=== PATIENT | female | born 1980 | race Caucasian/White ===

== ENCOUNTER 2017-09-28 05:02 | Inpatient (IN) ==
[2017-09-28 06:42] LABS: Basophils % 0.1 % (0.1-2.0); Eosinophils # 0.1 K/mm3 (0.0-0.4); Hematocrit 40.2 % (37.0-47.0); Hemoglobin 13.7 g/dL (12.2-16.2); Lymphocytes # 1.6 K/mm3 (0.7-4.5); Lymphocytes % 27.4 K/mm3 (10-50); Mean Corpuscular HGB Conc 34.1 g/dL (31.8-35.4); Mean Corpuscular Hemoglobin 27.8 pg (27.0-31.2); Mean Corpuscular Volume 81.4 fl (81-99); Mean Platelet Volume 7.7 fl (7.4-10.4); Monocytes # 0.4 K/mm3 (0.1-1.0); Monocytes % 5.9 % (1.7-9.3); Neutrophils # 3.9 K/mm3 (1.8-7.8); Neutrophils % 65.6 % (37.0-80.0); Platelet Count 178 K/mm3 (142-424); Red Blood Count 4.93 M/mm3 (4.20-5.40); Red Cell Distribution Width 13.9 % (11.5-17.5); White Blood Count 5.9 K/mm3 (4.8-10.8)
--- NOTE | 2017-09-28 08:25 | Progress Note ---
Labor Note - Subjective: Date: 09/28/17 Time: 08:24 regular contraction - Objective: Contractions:: every 2-3 minutes Cervical Dilation:: 3-4 Effacement:: 75% Station: -1 Membranes: articially ruptured - Fetus: Monitoring?: Yes monitoring type:: External - Assessment: Labor progressing?: Yes Cephalopelvic disproportion?: No Patient Problems: All Active Problems (Acute) - Plan: Anesthesia for epidural?: Yes Continue to labor down?: Yes Plan for ?: No Continue to monitor?: Yes Start pushing?: No
--- NOTE | 2017-09-28 08:29 | History & Physical Report ---
OB - H&P: HPI Antepartum - History of Present Illness Chief complaint: She is a 37-year-old 13 para 10 aborta 2 who was 39 weeks gestation History of present illness: She has had a previous history of a traumatic delivery with excruciating pain and possibly anxiety at the time of her delivery. She was fully dilated and pushing and in her last delivery had excruciating pain and anxiety and actually passed out. She did not want this to happen in this delivery. As result of that we are going to deliver her at term. - History of Present Criteria for establishing EDC:: LMP confirmed by 2nd trimester US care: limited care Ultrasounds: normal mid trimester US Obstetrical complications: none [facility] History I have reviewed the patient's past medical history: Yes Other Surgeries: No: Amputation: No Fractures: No - *Social History Smoking Status: Never smoker Alcohol Intake: never Substance Use Type: denies use *Family Hx:: No significant family history Para: 10 Review of Systems - Review of Systems Review of systems:: pertinent systems reviewed and negative unless documented below Meds Home Medications Medication Instructions Recorded Confirmed Type No Known Home Medications 08/03/17 08/03/17 History Allergies Allergy/AdvReac Type Severity Reaction Status Date / Time Sulfa (Sulfonamide Allergy Unknown hives Verified 09/21/17 16:32 Antibiotics) [SULFA (SULFONAMIDE ANTIBIOTICS)] OB - H&P: Exam - Constitutional no acute distress - Routine HEENT Exam Head: Present: normocephalic - Routine Abdominal Exam Present: soft - Routine Neurological Exam Present: alert, oriented X3 - Routine Psychiatric Exam Present: normal affect OB - Results - Labs Labs: Short CBC 09/28/17 Range/Units 06:10 WBC 5.9 (4.8-10.8) K/mm3 Hgb 13.7 (12.2-16.2) g/dL Hct 40.2 (37.0-47.0) % Plt Count 178 (142-424) K/mm3 OB - A/P Antepartum (1) Grand multiparity in labor and delivery Current visit: Yes Status: Acute - Additional Plan Plan: induction Additional Information:: We have started her on oxytocin and and I ruptured her membranes this morning. She is 3-4 cm dilated. The fluid is clear. We will get an epidural and wait for delivery.
--- NOTE | 2017-09-28 11:11 | Progress Note ---
Labor Note - Subjective: Date: 09/28/17 Time: 11:10 regular contraction - Objective: NST:: Reactive Contractions:: every 2-3 minutes Cervical Dilation:: 4 Effacement:: 80% Station: -1 Membranes: articially ruptured - Fetus: monitoring type:: External - Assessment: Labor progressing?: Yes Cephalopelvic disproportion?: No Patient Problems: All Active Problems Grand multiparity with problem (Acute) Grand multiparity in labor and delivery (Acute) (Acute) - Plan: Anesthesia for epidural?: Yes Continue to labor down?: Yes Plan for ?: No Continue to monitor?: Yes Start pushing?: No
--- NOTE | 2017-09-28 11:33 | Progress Note ---
[facility] Anesthesia Checklist - Structural Data Admitted From: Home Planned Operative Procedure/s: labor epidural Consent for Planned Operative Procedure(s) Verified: Yes - Airway Assessment C-Spine Mobility Assessed: Yes TMJ Mobility Assessed: Yes Dentition: Good Dentition - Neurological Assessment Level of Consciousness: Awake, Alert, Appropriate - Anesthesia Plan Anesthesia Risk discussed: Yes Anesthesia Plan: Verified ASA Class: II Anesthesia Type: Epidural [facility] Anesthesia HX I have reviewed the patient's past medical history: Yes Other Surgeries: No: Amputation: No Fractures: No *Family Hx:: No significant family history
--- NOTE | 2017-09-28 13:47 | Procedure Note ---
- Delivery Note Delivery Date:: 09/28/17 Delivery Time:: 13:24 Anesthesia Type: Epidural Was labor medically induced?: Yes Induction method: per pitocin protocol Infant delivered prior to 39 weeks?: No Infant Gender: Female at 1 minute: 9 at 5 minutes: 9 AF:: Clear fluid Delivery Procedure:: She is a 37-year-old 13 now para 11 aborta 2 who is 39 weeks gestational age. She has had a previous traumatic vaginal delivery with severe abdominal cramps in her last 2 pregnancies. As result of that she requested delivery and hospital with epidural. She was started on IV oxytocin and had her membranes ruptured. Under labor epidural she progressed to full dilation. With one long gentle push she was able to deliver a liveborn female child over an intact perineum. The baby weighed 5 lbs. 13 oz. and had Apgars of 9 at 1 minute and 9 at 5 minutes. On deliver the head the rest of the infant's body delivered atraumatically. The baby cried spontaneously and the oropharynx and nasopharynx were bulb suctioned. We allowed the cord to continue to pulsate for approximately 1 minute. We then doubly clamped the cord and placed the baby on the mother's abdomen for further care. The nurses assigned Apgars of 9 at 1 minute and 9 at 5 minutes. We then obtained cord blood. Her mother is Rh- . She received IV oxytocin and using gentle traction on the cord and countertraction on the fundus I was able to easily deliver the placenta intact. He had a normal three-vessel cord. The pain was intact. There were no other vaginal tears. She has AB negative blood, she is group B streptococcus status unknown. Using the [employer] kaylyn for group B strep prophylaxis I determined that she was a low risk for group B strep and as result of that she did not get IV antibiotics. She does not have a fever. She does not have a previous baby with group B strep or group B strep in her urine. Her membranes were not ruptured more than 18 hours. Her estimated blood loss was approximately 400 cc. Placental Delivery Description: Spontaneous
--- NOTE | 2017-09-28 17:15 | Discharge Summary ---
General - General Admission date:: 09/28/17 Discharge date: 09/28/17 HPI HPI: She is a 37-year-old 13 now para 11 aborta 2 who was brought in for induction of labor this morning because of a previous traumatic delivery. Hospital Course Hospital Course: She was started on IV oxytocin and had her membranes ruptured. She progressed to full dilation and delivered spontaneously a liveborn female child at 1320 4 in the afternoon of September 28, 2017. The baby weighed 5 lbs. 13 oz. and had Apgars of 9 at 1 minute and 9 at 5 minutes. She has AB- blood and her baby is Rh+ so she has received RhoGam. She will be discharged home to follow-up with me in a couple of weeks. Objective no acute distress Results Labs on day of discharge: Labs from last 24 hours 09/28/17 09/28/17 09/28/17 15:36 15:36 06:10 WBC RBC Hgb Hct MCV MCH MCHC RDW Plt Count MPV Neut % (Auto) Lymph % (Auto) [place] % (Auto) Eos % (Auto) Baso % (Auto) Neut # (Auto) Lymph # (Auto) [place] # (Auto) Eos # (Auto) Baso # (Auto) Blood Type AB Negative Antibody Screen Positive Antibody Identification Pending Anti-E Screen Negative Baby's Rh Status Positive 09/28/17 09/28/17 06:10 06:10 WBC 5.9 RBC 4.93 Hgb 13.7 Hct 40.2 MCV 81.4 MCH 27.8 MCHC 34.1 RDW 13.9 Plt Count 178 MPV 7.7 Neut % (Auto) 65.6 Lymph % (Auto) 27.4 [place] % (Auto) 5.9 Eos % (Auto) 1.0 Baso % (Auto) 0.1 Neut # (Auto) 3.9 Lymph # (Auto) 1.6 [place] # (Auto) 0.4 Eos # (Auto) 0.1 Baso # (Auto) 0.0 Blood Type AB Negative Antibody Screen Positive Antibody Identification Screen Baby's Rh Status DS: Diagnosis - Discharge Diagnosis (1) Grand multiparity in labor and delivery Status: Acute Discharge Plan - Patient Discharge Instructions ACTIVITY: No heavy lifting DIET: continue same diet Additional Instructions: NO HEAVY LIFTING, NO STRENUOUS ACTIVITY, NOTHING IN THE VAGINA FOR 6 WEEKS. Patient Instructions: Depression, Hemorrhage, Post Discharge Instructions - Follow up Plan Disposition: Home, Self-Half-Way Medications: Home Medications Medication Instructions Recorded Confirmed Type No Known Home Medications 09/28/17 09/28/17 History Prescriptions/Medication Reconciliation: No Action No Known Home Medications
[2017-09-28 20:04] VITALS: BP 118/73
== END 2017-09-28 19:50 | disposition home or self-care (01) ==
LOC: OB 05:02
PROVIDERS: ADMIT Nurse Practitioner Obstetrics & Gynecology; ATTEND Nurse Practitioner Obstetrics & Gynecology

== ENCOUNTER → 2019-10-03 16:51 | Outpatient (CLI) | payer SELFPAY | PROVIDERS: Visit Provider Nurse Practitioner Obstetrics & Gynecology | DX: Z34.90 Encounter for supervision of normal pregnancy, unspecified, unspecified trimester (principal) | CPT/HCPCS: 86403 ==

== ENCOUNTER 2019-10-18 05:02 | Inpatient (IN) | payer SELFPAY ==
[2019-10-18 05:07] VITALS: BMI 29.0
[2019-10-18 05:57] VITALS: BP 130/82; PULSE 86; RESP 18; TEMP 36.8; O2SAT 98; BMI 29.0
[2019-10-18 06:06] LABS: Microscopic, Urine URINE MICROSCOPIC (MICROSCOPIC)
[2019-10-18 06:15] LABS: Appearance,Urine CLEAR (Clear); Bilirubin,Urine Negative (Negative); Blood, Urine 1+ (Negative); Color,Urine YELLOW (Yellow); Glucose,Urine (UA) Negative (Negative); Ketones,Urine Negative (Negative); Leukocyte Esterase,Urine Negative (Negative); Nitrate,Urine Negative (Negative); Protein,Urine Negative (Negative); Urobilinogen,Urine 0.2 EU/dl (0.2)
[2019-10-18 06:26] LABS: Barbiturates Screen,Urine Negative ng/ml (<200)
[2019-10-18 06:27] LABS: Amphetamine/Metha Screen,Urine Negative ng/ml (<1000); Benzodiazepines Screen,Urine Negative ng/ml (<200)
[2019-10-18 06:28] LABS: Basophils % 0.3 % (0.1-2.0); Cannabinoid Screen,Urine Negative ng/ml (<50); Cocaine Screen,Urine Negative ng/ml (<300); Eosinophils # 0.1 K/mm3 (0.0-0.4); Eosinophils % 1.6 % (0.1-12.0); Hematocrit 40.1 % (37.0-47.0); Hemoglobin 13.6 g/dL (12.2-16.2); Lymphocytes # 1.8 K/mm3 (0.7-4.5); Lymphocytes % 27.1 % (10-50); Mean Corpuscular Hemoglobin 28.2 pg (27.0-31.2); Mean Corpuscular Volume 82.9 fl (81-99); Mean Platelet Volume 7.9 fl (7.4-10.4); Monocytes # 0.3 K/mm3 (0.1-1.0); Monocytes % 4.8 % (1.7-9.3); Neutrophils # 4.4 K/mm3 (1.8-7.8); Neutrophils % 66.3 % (37.0-80.0); Platelet Count 183 K/mm3 (142-424); Red Blood Count 4.84 M/mm3 (4.20-5.40); Red Cell Distribution Width 14.2 % (11.5-17.5); White Blood Count 6.6 K/mm3 (4.8-10.8)
[2019-10-18 06:29] LABS: Methadone Screen,Urine Negative ng/ml (<300)
[2019-10-18 06:30] LABS: Opiate Screen,Urine Negative ng/ml (<300); Phencyclidine Screen,Urine Negative ng/ml (<25)
[2019-10-18 06:31] LABS: Squamous Epithelial Cell,Urine Occasional #/hpf (0-5)
[2019-10-18 06:48] LABS: Coronavirus 19 IgG Antibody Negative (Negative); Coronavirus 19 IgM Antibody Negative (Negative)
[2019-10-18 07:30] VITALS: BP 125/83; PULSE 81; RESP 20; TEMP 36.9; O2SAT 98
--- NOTE | 2019-10-18 08:36 | HMH.LABNOT ---
Labor Note - Subjective: Date: 10/18/19 Time: 08:36 regular contraction - Objective: NST:: Reactive Contractions:: every 2-3 minutes Effacement:: 50% Station: -2 Membranes: artificially ruptured - Fetus: Monitoring?: Yes monitoring type:: External - Assessment: Labor progressing?: Yes Cephalopelvic disproportion?: No Patient Problems: All Active Problems (Acute) - Plan: Anesthesia for epidural?: Yes Continue to labor down?: Yes Plan for ?: No Continue to monitor?: Yes Start pushing?: No
--- NOTE | 2019-10-18 11:17 | HMH.OBAPHP ---
OB - H&P: HPI Antepartum - History of Present Illness Chief complaint: She is a 39-year-old 12 para 11 at 39 weeks gestational age. History of present illness: She is a 39-year-old 12 para 11 who has had problems in labor and difficulty with labor. She wanted to be admitted to hospital for epidural. 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 - History of Present Criteria for establishing EDC:: LMP confirmed by 2nd trimester US care: limited care Ultrasounds: normal mid trimester US Obstetrical complications: none Medical complications: none - Labs GBS status: negative [facility] History I have reviewed the patient's past medical history: Yes *Have you ever received a pneumonia vaccine?: No *Have you received a flu vaccine this season?: No Other Surgeries: No: Amputation: No Fractures: No - *Social History Smoking Status: Never smoker Alcohol Intake: never Substance Use Type: denies use *Occupational Status:: unemployed *Travel in the last 8 weeks: None Family Hx:: No significant family history Para: 11 Review of Systems - Review of Systems Review of systems:: pertinent systems reviewed and negative unless documented below Meds Home Medications Medication Instructions Recorded Confirmed Type Mv-Mn/Iron/FA/Herbal/Digestive 1 each PO DAILY 10/18/19 10/18/19 History [ One Tablet] Allergies Allergy/AdvReac Type Severity Reaction Status Date / Time Sulfa (Sulfonamide Allergy Unknown hives Verified 10/03/19 16:13 Antibiotics) [SULFA (SULFONAMIDE ANTIBIOTICS)] OB - H&P: Exam - Physical Exam Vital signs: Temp Pulse Resp BP Pulse Ox 98.4 F 81 20 125/83 98 10/18/19 07:30 10/18/19 07:30 10/18/19 07:30 10/18/19 07:30 10/18/19 07:30 - Constitutional no acute distress - Routine HEENT Exam Head: Present: normocephalic Eye: Present: EOMI, PERRL ENT: Present: mucous membranes moist - Routine Neck Exam Present: supple, full ROM - Routine Respiratory Exam Absent: accessory muscle use (good air entry bilaterally), respiratory distress, wheezes, crackles - Routine Cardiovascular Exam Present: RRR. Absent: murmur - Routine Abdominal Exam Present: soft, normoactive bowel sounds. Absent: tenderness, distended, guarding - Routine Rectal Exam Patient deferred: visual exam, digital exam - Routine Exam Patient deferred: external exam, groin exam, perineal exam - Routine Extremities Exam Present: full ROM. Absent: cyanosis, edema - Routine Skin Exam Present: intact. Absent: cyanosis - Routine Neurological Exam Present: alert, oriented X3 - Routine Psychiatric Exam Present: normal affect OB - Results - Labs Labs: Short CBC 10/18/19 Range/Units 05:30 WBC 6.6 (4.8-10.8) K/mm3 Hgb 13.6 (12.2-16.2) g/dL Hct 40.1 (37.0-47.0) % Plt Count 183 (142-424) K/mm3 Urine 10/18/19 Range/Units 05:30 Urine Color Yellow (Yellow) Urine Appearance Clear (Clear) Urine pH 6.0 (5.0-8.5) Ur Specific [place] 1.020 (1.005-1.030) Urine Protein Negative (Negative) Urine Glucose (UA) Negative (Negative) OB - A/P Antepartum (1) Normal delivery Current visit: Yes Status: Acute (2) Grand multiparity Current visit: Yes Status: Acute (3) Advanced maternal age in multigravida Current visit: Yes Status: Acute - Additional Plan Planning to breastfeed?: Yes Plan: induction Additional Information:: She has grand multiparity and has been admitted for induction of labor at term.
[2019-10-18 12:10] VITALS: BP 102/60; PULSE 88; RESP 20; TEMP 36.9
--- NOTE | 2019-10-18 13:11 | HMH.DN ---
- Delivery Note Delivery Date:: 10/18/19 Delivery Time:: 12:54 Anesthesia Type: Epidural Was labor medically induced?: Yes Induction method: per pitocin protocol Gestational age (weeks): 39 delivered prior to 39 weeks?: No Gender: Female at 1 minute: 7 at 5 minutes: 9 Delivery Procedure:: She is a 39-year-old 12 para 11 who was 39 weeks gestational age. She wanted an epidural so she was brought in for induction of labor at term. She was started on IV oxytocin had her membranes ruptured. Under labor epidural she progressed to full dilation and delivered spontaneously a liveborn female child at 12:54 PM in the afternoon of October 18, 2019. On deliver the head it was noted that there was a nuchal cord and this was easily reduced. This was followed by the rest the 's body atraumatically. We allowed the cord to continue to pulsate for approximately 1 minute. The cord is then doubly clamped and cut and the infant was placed on the mother's abdomen and the nurses assigned Apgars of 7 at 1 minute and 9 at 5 minutes. We then obtained cord blood. The patient has Rh- blood. She received IV oxytocin and using gentle traction on the cord and countertraction the fundus I was able to easily deliver the placenta intact. He had a normal three-vessel cord. There were no perineal or vaginal lacerations. 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 She has O Rh- blood and will receive RhoGam as necessary. She was group B streptococcus negative. Placental Delivery Description: Spontaneous
[2019-10-18 15:26] VITALS: BP 119/71; PULSE 80; RESP 18; TEMP 36.9
--- NOTE | 2019-10-18 15:41 | HMH.DCSUM ---
General - General Admission date:: 10/18/19 Discharge date: 10/18/19 HPI HPI: She is a 39-year-old 14 now para 12 who is 39 weeks gestational age. She wanted an epidural and as result of that we brought her in at term for delivery. Hospital Course Hospital Course: She was started on IV oxytocin had her membranes ruptured. She progressed to full dilation under labor epidural and delivered spontaneously a liveborn female child at 12:54 PM in the afternoon of October 18, 2019. The baby was a liveborn female child weighing 6 pounds 12 ounces and she had Apgars of 7 at 1 minute and 9 at 5 minutes. She has done well and has remained afebrile throughout her hospitalization. She is eating and drinking and ambulating. She has O Rh- blood and will receive RhoGam if necessary. She was group B streptococcus negative. She is discharged home to follow-up with me in approximately 2 weeks time. She will continue with her vitamins and iron. She was given a prescription for Ms. apostle 200 mg to take every 6 hours for the next 24 hours since she is at risk for hemorrhage given her grand multiparity. Her condition on discharge is stable and improved. Objective Vital signs: Temp Pulse Resp BP Pulse Ox 98.4 F 88 20 102/60 L 98 10/18/19 12:10 10/18/19 12:10 10/18/19 12:10 10/18/19 12:10 10/18/19 07:30 no acute distress - *Routine HEENT Exam Head: Present: normocephalic Eye: Present: EOMI, PERRL ENT: Present: mucous membranes moist Results Labs on day of discharge: Labs from last 24 hours 10/18/19 10/18/19 10/18/19 14:15 05:30 05:30 WBC RBC Hgb Hct MCV MCH MCHC RDW Plt Count MPV Neut % (Auto) Lymph % (Auto) [place] % (Auto) Eos % (Auto) Baso % (Auto) Neut # (Auto) Lymph # (Auto) [place] # (Auto) Eos # (Auto) Baso # (Auto) Urine Color Urine Appearance Urine pH Ur Specific [place] Urine Protein Urine Glucose (UA) Urine Ketones Urine Blood Urine Nitrate Urine Bilirubin Urine Urobilinogen Ur Leukocyte Esterase Urine RBC Urine WBC Ur Squamous Epith Cells Urine Bacteria Urine Opiates Screen Negative Urine Methadone Screen Negative Ur Barbituates Screen Negative Ur Phencyclidine Scrn Negative Ur Amphetamines Screen Negative U Benzodiazepines Scrn Negative Urine Cocaine Screen Negative U Marijuana (THC) Screen Negative SARS-CoV-2 IgG Ab (Rapid) SARS-CoV-2 IgM Ab (Rapid) Blood Type Pending Antibody Screen Pending Antibody Identification Pending Screen Pending Baby's Rh Status Pending 10/18/19 10/18/19 10/18/19 05:30 05:30 05:30 WBC RBC Hgb Hct MCV MCH MCHC RDW Plt Count MPV Neut % (Auto) Lymph % (Auto) [place] % (Auto) Eos % (Auto) Baso % (Auto) Neut # (Auto) Lymph # (Auto) [place] # (Auto) Eos # (Auto) Baso # (Auto) Urine Color Yellow Urine Appearance Clear Urine pH 6.0 Ur Specific [place] 1.020 Urine Protein Negative Urine Glucose (UA) Negative Urine Ketones Negative Urine Blood 1+ Urine Nitrate Negative Urine Bilirubin Negative Urine Urobilinogen 0.2 Ur Leukocyte Esterase Negative Urine RBC 5-10 Urine WBC 3-5 Ur Squamous Epith Cells Occasional Urine Bacteria None Urine Opiates Screen Urine Methadone Screen Ur Barbituates Screen Ur Phencyclidine Scrn Ur Amphetamines Screen U Benzodiazepines Scrn Urine Cocaine Screen U Marijuana (THC) Screen SARS-CoV-2 IgG Ab (Rapid) Negative SARS-CoV-2 IgM Ab (Rapid) Negative Blood Type AB Negative Antibody Screen Positive Antibody Identification Screen Baby's Rh Status 10/18/19 05:30 WBC 6.6 RBC 4.84 Hgb 13.6 Hct 40.1 MCV 82.9 MCH 28.2 MCHC 34.0 RDW 14.2
== END 2019-10-18 18:40 | disposition home or self-care (01) | DRG 807 ==
PROVIDERS: Admitting Provider Nurse Practitioner Obstetrics & Gynecology; PCP Nurse Practitioner Family; Visit Provider Nurse Practitioner Obstetrics & Gynecology
DX: O69.81X0 Labor and delivery complicated by cord around neck, without compression, not applicable or unspecified (principal); Z37.0 Single live birth; Z3A.39 39 weeks gestation of pregnancy; Z29.13 Encounter for prophylactic Rho(D) immune globulin
CPT/HCPCS: 59409; 36415; 59025; 80305; 81001; 85025; 85461; 86328; 86850; 86870; 94761; J2790

== ENCOUNTER → 2021-05-02 15:55 | Outpatient (CLI) | payer SELFPAY | LOC: LAB 15:55 → LAB.DROPOF 15:56 | PROVIDERS: Visit Provider Nurse Practitioner Obstetrics & Gynecology | DX: Z34.90 Encounter for supervision of normal pregnancy, unspecified, unspecified trimester (principal) | CPT/HCPCS: 86403 ==

== ENCOUNTER 2021-05-15 04:52 | Outpatient (CLI) | payer SELFPAY ==
[2021-05-15 05:06] VITALS: BMI 28.3
--- NOTE | 2021-05-15 06:08 | US_ITS ---
PROCEDURE: US OB LIMITED POSITION CLINICAL INDICATION: INDUCTION OF LABOR, UNSURE OF LIE COMPARISON: No exams were available for comparison FINDINGS: Single live fetus is present in an oblique lie with the head in the left lower quadrant. heart tones are present 144 beats per minute. Average ultrasound age is 35 weeks 1 day. Estimated weight is 2422 g which is 2 percentile indicating intrauterine growth restriction.. IMPRESSION: Single live fetus is present in an oblique lie with the head in the left lower quadrant. heart tones are present 144 beats per minute. Average ultrasound age is 35 weeks 1 day. Estimated weight is 2422 g which is 2 percentile indicating intrauterine growth restriction Dictated by: Castro Guzman MD 05/15/2021 08:01 Castro Guzman MD in [place] 05/15/2021 08:01
[2021-05-15 06:14] VITALS: BP 117/70; PULSE 76; RESP 18; TEMP 36.7; O2SAT 97; BMI 28.3
[2021-05-15 07:37] LABS: Basophils % 0.4 % (0.1-2.0); Eosinophils # 0.1 K/mm3 (0.0-0.4); Eosinophils % 0.8 % (0.1-12.0); Hematocrit 39.1 % (37.0-47.0); Hemoglobin 13.5 g/dL (12.2-16.2); Lymphocytes # 1.7 K/mm3 (0.7-4.5); Lymphocytes % 28.2 % (10-50); Mean Corpuscular HGB Conc 34.6 g/dL (31.8-35.4); Mean Corpuscular Hemoglobin 27.7 pg (27.0-31.2); Mean Corpuscular Volume 80.1 fl (81-99); Mean Platelet Volume 7.6 fl (7.4-10.4); Monocytes # 0.4 K/mm3 (0.1-1.0); Monocytes % 5.7 % (1.7-9.3); Neutrophils # 3.9 K/mm3 (1.8-7.8); Platelet Count 239 K/mm3 (142-424); Red Blood Count 4.88 M/mm3 (4.20-5.40); Red Cell Distribution Width 13.3 % (11.5-17.5); White Blood Count 6.1 K/mm3 (4.8-10.8)
--- NOTE | 2021-05-15 10:15 | HMH.HPDC ---
General - General Admission date:: 05/15/21 Discharge date: 05/15/21 *Admission Date: 05/15/21 *Chief complaint: multigravida *History of present illness: She is a 40-year-old 15 para 12 aborta 2 who had an unsure last menstrual period. She was seen at 31 weeks in my office and we felt that she may have been 33 weeks along. Her due date was 06 June. We went by this earlier date but we think that the due date may actually be 06 June. 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[employer]OR history: Spontaneous Para: 12 Review of Systems - Review of Systems Review of systems:: pertinent systems reviewed and negative unless documented below Exam Vital signs and Labs for Last 24 Hours: Temp Pulse Resp BP Pulse Ox 98.0 F 76 18 117/70 97 05/15/21 06:14 05/15/21 06:14 05/15/21 06:14 05/15/21 06:14 05/15/21 06:14 Laboratory Results - last 24 hr 05/15/21 07:08: WBC 6.1, RBC 4.88, Hgb 13.5, Hct 39.1, MCV 80.1 L, MCH 27.7, MCHC 34.6, RDW 13.3, Plt Count 239, MPV 7.6, Neut % (Auto) 65.0, Lymph % (Auto) 28.2, [place] % (Auto) 5.7, Eos % (Auto) 0.8, Baso % (Auto) 0.4, Neut # (Auto) 3.9, Lymph # (Auto) 1.7, [place] # (Auto) 0.4, Eos # (Auto) 0.1, Baso # (Auto) 0.0 05/15/21 07:08: Blood Type AB Negative, Antibody Screen Positive I & O for Last 24 hours: Intake & Output 12/19/05/13/21 05/14/21 05/15/21 11:59 11:59 11:59 11:59 Weight 181 lb - Constitutional no acute distress - *Routine HEENT Exam Head: Present: normocephalic Eye: Present: EOMI, PERRL ENT: Present: mucous membranes moist - *Routine Neck Exam Present: supple, full ROM - *Routine Respiratory Exam Absent: accessory muscle use (good air entry bilaterally), wheezes, crackles - *Routine Cardiovascular Exam Present: RRR. Absent: murmur - *Routine Abdominal Exam Present: soft, normoactive bowel sounds. Absent: tenderness, rebound, guarding, mass - *Routine Rectal Exam Rectal:: deferred - *Routine Genitalia Exam Genitalia:: deferred - *Routine Extremities Exam Present: full ROM. Absent: cyanosis, edema, calf tenderness - *Routine Skin Exam Present: intact (good color) - *Routine Neurological Exam Present: alert, oriented X3 - Routine Psychiatric Exam Present: normal affect - Detailed Rectal Exam Patient deferred: visual exam, digital exam - Detailed Exam Patient deferred: external exam, groin exam, perineal exam Hospital Course Hospital Course: We did an ultrasound and the lie is unstable. We found that the baby's head was high and slightly oblique. We also felt that her dates were possibly off given the ultrasound showed that she measured up smaller than her dates. As result of that we have decided to not induce her labor at term and wait for another couple of weeks. She is Anab[employer]ism and we are concerned that if the baby gets transferred to will be extremely expensive to look after the baby. We will plan to see her again next week. We will discharge her home from labor and delivery today. We will plan to deliver her closer to 06 June 2021 Results Labs on day of discharge: Labs from last 24 hours 05/15/21 05/15/21 05/15/21 07:08 07:08 07:08 WBC 6.1 RBC 4.88 Hgb 13.5 Hct 39.1 MCV 80.1 L MCH 27.7 MCHC 34.6 RDW 13.3 Plt Count 239 MPV 7.6 Neut % (Auto) 65.0 Lymph % (Auto) 28.2 [place] % (Auto) 5.7 Eos % (Auto) 0.8 Baso % (Auto) 0.4 Neut # (Auto) 3.9 Lymph # (Auto) 1.7 [place] # (Auto) 0.4 Eos # (Auto) 0.1 Ba
[2021-05-16 08:52] LABS: HIV Screen 4th Generation wRfx Non Reactive (Non Reactive); Hepatitis B Surface Antigen Negative (Negative); Rubella Antibodies, IgG <0.90 index (Immune >0.99)
[2021-05-16 10:11] LABS: Rapid Plasma Reagin Ab Titer Non Reactive (NonRea<1:1)
== END 2021-05-15 09:00 | disposition home or self-care (01) ==
LOC: OB 10:20 → OBOUT 05-16 15:19 → OB 05-16 15:21
PROVIDERS: PCP Nurse Practitioner Family; Visit Provider Nurse Practitioner Obstetrics & Gynecology
DX: O26.893 Other specified pregnancy related conditions, third trimester (principal); Z3A.39 39 weeks gestation of pregnancy
CPT/HCPCS: 59025; 76815; 85025; 86592; 86762; 86850; 86870; 87340

== ENCOUNTER 2021-05-31 05:17 | Inpatient (IN) | payer SELFPAY ==
[2021-05-31 04:49] VITALS: BMI 28.0
[2021-05-31 05:51] LABS: Coronavirus 19, PCR Not Detected (NotDetected); Influenza A, PCR Not Detected (NotDetected); Influenza B, PCR Not Detected (NotDetected); Microscopic, Urine URINE MICROSCOPIC (MICROSCOPIC)
[2021-05-31 05:52] LABS: Basophils # 0.1 K/mm3 (0-0.2); Basophils % 1.6 % (0.1-2.0); Eosinophils # 0.1 K/mm3 (0.0-0.4); Eosinophils % 1.3 % (0.1-12.0); Hematocrit 40.9 % (37.0-47.0); Hemoglobin 13.6 g/dL (12.2-16.2); Lymphocytes % 32.7 % (10-50); Mean Corpuscular HGB Conc 33.2 g/dL (31.8-35.4); Mean Corpuscular Hemoglobin 27.7 pg (27.0-31.2); Mean Corpuscular Volume 83.5 fl (81-99); Mean Platelet Volume 9.1 fl (7.4-10.4); Monocytes # 0.4 K/mm3 (0.1-1.0); Monocytes % 5.8 % (1.7-9.3); Neutrophils # 3.6 K/mm3 (1.8-7.8); Neutrophils % 58.6 % (37.0-80.0); Platelet Count 195 K/mm3 (142-424); Red Blood Count 4.89 M/mm3 (4.20-5.40); Red Cell Distribution Width 14.1 % (11.5-17.5); White Blood Count 6.1 K/mm3 (4.8-10.8)
[2021-05-31 05:58] LABS: Appearance,Urine CLEAR (Clear); Bilirubin,Urine Negative (Negative); Blood, Urine TRACE-I (Negative); Color,Urine YELLOW (Yellow); Glucose,Urine (UA) TRACE (Negative); Ketones,Urine TRACE (Negative); Leukocyte Esterase,Urine Negative (Negative); Nitrate,Urine Negative (Negative); Protein,Urine Negative (Negative); Specific Gravity, Urine 1.015 (1.005-1.030); Urobilinogen,Urine 0.2 EU/dl (0.2)
[2021-05-31 06:08] VITALS: BP 117/83; PULSE 82; RESP 18; TEMP 36.7; O2SAT 97; BMI 28.0
[2021-05-31 06:18] LABS: WBC,Urine Occasional #/hpf (0-3)
[2021-05-31 07:06] LABS: Amphetamine/Metha Screen,Urine Negative ng/ml (<1000)
[2021-05-31 07:07] LABS: Barbiturates Screen,Urine Negative ng/ml (<200)
[2021-05-31 07:08] LABS: Benzodiazepines Screen,Urine Negative ng/ml (<200); Cannabinoid Screen,Urine Negative ng/ml (<50)
[2021-05-31 07:09] LABS: Cocaine Screen,Urine Negative ng/ml (<300); Methadone Screen,Urine Negative ng/ml (<300)
[2021-05-31 07:10] LABS: Opiate Screen,Urine Negative ng/ml (<300)
[2021-05-31 07:11] LABS: Phencyclidine Screen,Urine Negative ng/ml (<25)
--- NOTE | 2021-05-31 10:18 | HMH.OBAPHP ---
OB - H&P: HPI Antepartum - History of Present Illness Chief complaint: Term , grand multipara History of present illness: She is a 40-year-old 15 para 12 aborta 2 who is 39 weeks gestational age. She came in for induction of labor at term. She wants an epidural. She is Jose. She has had 12 previous vaginal deliveries. - History of Present Criteria for establishing EDC:: based on LMP only care: limited care Ultrasounds: other Obstetrical complications: none Medical complications: none - Labs Blood type: AB (-) negative GBS status: negative [facility] History I have reviewed the patient's past medical history: Yes *Have you ever received a pneumonia vaccine?: No *Have you received a flu vaccine this season?: No Other Surgeries: No: Amputation: No Fractures: No - *Social History Smoking Status: Never smoker Alcohol Intake: never Substance Use Type: denies use *Occupational Status:: unemployed *Travel in the last 8 weeks: None Family Hx:: No significant family history 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 Review of Systems - Review of Systems Review of systems:: pertinent systems reviewed and negative unless documented below Meds Home Medications Medication Instructions Recorded Confirmed Type No Known Home Medications 05/31/21 05/31/21 History Allergies Allergy/AdvReac Type Severity Reaction Status Date / Time Sulfa (Sulfonamide Allergy Unknown hives Verified 05/22/21 14:27 Antibiotics) [SULFA (SULFONAMIDE ANTIBIOTICS)] OB - H&P: Exam - Physical Exam Vital signs: Temp Pulse Resp BP Pulse Ox 98.1 F 82 18 117/83 97 05/31/21 06:08 05/31/21 06:08 05/31/21 06:08 05/31/21 06:08 05/31/21 06:08 - Constitutional no acute distress - Routine HEENT Exam Head: Present: normocephalic Eye: Present: EOMI, PERRL ENT: Present: mucous membranes moist - Routine Neck Exam Present: supple, full ROM - Routine Respiratory Exam Absent: accessory muscle use (good air entry bilaterally), respiratory distress, wheezes, crackles - Routine Cardiovascular Exam Present: RRR. Absent: murmur - Routine Abdominal Exam Present: soft, normoactive bowel sounds. Absent: tenderness, distended, guarding - Routine Rectal Exam Patient deferred: visual exam, digital exam - Routine Exam Patient deferred: external exam, groin exam, perineal exam - Routine Extremities Exam Present: full ROM. Absent: cyanosis, edema - Routine Skin Exam Present: intact. Absent: cyanosis - Routine Neurological Exam Present: alert, oriented X3 - Routine Psychiatric Exam Present: normal affect OB - Results - Labs Labs: Short CBC 05/31/21 Range/Units 05:39 WBC 6.1 (4.8-10.8) K/mm3 Hgb 13.6 (12.2-16.2) g/dL Hct 40.9 (37.0-47.0) % Plt Count 195 (142-424) K/mm3 Urine 05/31/21 Range/Units 05:39 Urine Color Yellow (Yellow) Urine Appearance Clear (Clear) Urine pH 6.0 (5.0-8.5) Ur Specific [place] 1.015 (1.005-1.030) Urine Protein Negative (Negative) Urine Glucose (UA) Trace (Negative) OB - A/P Antepartum (1) Advanced maternal age (AMA), 40 years or greater Status: Acute (2) Grand multiparity Status: Acute (3) Rh incompatibility in , antepartum Status: Acute - Additional Plan Planning to breastfeed?: Yes Plan: induction Additional Information:: I ruptured her membranes and there was clear fluid. She was 3 cm dilated. We will expect a vaginal delivery. She is matthew every 2 to 3 minutes. Nonstress test is reactive.
--- NOTE | 2021-05-31 10:38 | HMH.LABNOT ---
Labor Note - Subjective: Date: 05/31/21 Time: 09:25 regular contraction - Objective: NST:: Reactive Contractions:: every 2-3 minutes Cervical Dilation:: 3-4 Effacement:: 50% Membranes: artificially ruptured - Fetus: Monitoring?: Yes monitoring type:: External - Assessment: Labor progressing?: Yes Cephalopelvic disproportion?: No Patient Problems: All Active Problems Advanced maternal age (AMA), 40 years or greater (Acute) Grand multiparity (Acute) Advanced maternal age in multigravida (Acute) Rh incompatibility in , antepartum (Acute) (Acute) - Plan: Anesthesia for epidural?: Yes Continue to labor down?: Yes Plan for ?: No Continue to monitor?: Yes Start pushing?: No Comment:: I ruptured her membranes and there was clear fluid. She is doing well. The nonstress test is reactive. The epidural is not working well so we will have anesthesia come back and see her again to see if they can readjust the epidural.
--- NOTE | 2021-05-31 11:51 | HMH.LABNOT ---
Labor Note - Subjective: Date: 05/31/21 Time: 11:51 regular contraction - Objective: NST:: Reactive Contractions:: every 2-3 minutes Cervical Dilation:: 5 Effacement:: 100% Station: -1 Membranes: artificially ruptured - Fetus: Monitoring?: Yes monitoring type:: External - Assessment: Labor progressing?: Yes Cephalopelvic disproportion?: No Patient Problems: All Active Problems Advanced maternal age (AMA), 40 years or greater (Acute) Grand multiparity (Acute) Advanced maternal age in multigravida (Acute) Rh incompatibility in , antepartum (Acute) (Acute) - Plan: Anesthesia for epidural?: Yes Continue to labor down?: Yes Plan for ?: No Continue to monitor?: Yes Start pushing?: No
--- NOTE | 2021-05-31 12:56 | P.PN_ITS ---
[facility] Anesthesia Checklist - Patient Identification Patient Identification: Arm Band, Verbal (Name & ) - Structural Data Admitted From: Inpatient Planned Operative Procedure/s: CATHI Consent for Planned Operative Procedure(s) Verified: Yes Verified Documents: Surgical Consent - NPO Status Verified Time NPO: 00:00 - Chart Verification Results Verified: CBC - Airway Assessment C-Spine Mobility Assessed: Yes TMJ Mobility Assessed: Yes Dentition: Good Dentition - Neurological Assessment Level of Consciousness: Awake, Alert, Appropriate - Anesthesia Plan Anesthesia Risk discussed: Yes ASA Class: II Anesthesia Type: Epidural [facility] History I have reviewed the patient's past medical history: Yes *Have you ever received a pneumonia vaccine?: No *Have you received a flu vaccine this season?: No Anesthesia experience/problems:: none Other Surgeries: No: Amputation: No Fractures: No - *Social History Smoking Status: Never smoker Alcohol Intake: never Substance Use Type: denies use *Occupational Status:: unemployed *Travel in the last 8 weeks: None Family Hx:: No significant family history 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
--- NOTE | 2021-05-31 13:44 | HMH.DN ---
- Delivery Note Delivery Date:: 05/31/21 Delivery Time:: 13:33 Anesthesia Type: Epidural Was labor medically induced?: Yes Induction method: per pitocin protocol Gestational age (weeks): 39 delivered prior to 39 weeks?: No Gender: Male at 1 minute: 7 at 5 minutes: 8 Delivery Procedure:: She is a 40-year-old 15 para 12 aborta 2 who is 39 weeks gestational age. She has had problems with labor and delivery in the past and wanted an epidural. As result of that we elected to bring her in at 39 weeks for induction of labor at term. She was started on IV oxytocin had her membranes ruptured. Under labor epidural she progressed to full dilation and delivered spontaneously a liveborn male child at 1:33 PM in the afternoon of May 31, 2021. On deliver the head was noted there was a nuchal cord I was not able to reduce the cord and deliver the rest the infant's body atraumatically. The cord was then reduced. The baby was vigorous and cried spontaneously. We allowed the cord to continue to pulsate for approximately 1 minute. The oropharynx and nasopharynx were bulb suction. The cord was then doubly clamped and cut and the was placed on the mother's abdomen for further care. They assigned Apgars of 7 at 1 and 8 at 5 minutes. We then obtained cord blood. The patient has AB- blood. She received IV oxytocin and using gentle traction on the cord and countertraction on the fundus I was able to easily deliver the placenta intact 3 minutes after delivery. It had a normal three-vessel cord. She has AB- blood, she is rubella nonimmune and was group B streptococcus negative. She plans to breast-feed. Her estimated blood loss was approximately 100 cc. There are no perineal or vaginal lacerations. Placental Delivery Description: Spontaneous
--- NOTE | 2021-05-31 13:48 | HMH.OBDCSM ---
General - General Admission date:: 05/31/21 Discharge date: 05/31/21 HPI - History of Present Illness History of present illness: She is a 40-year-old 15 now para 13 aborta 2 who is 39 weeks gestational age. She is brought in for induction of labor at term. She wanted an epidural in labor. Hospital Course Hospital Course: She was started on IV oxytocin had her membranes ruptured. She progressed to full dilation and delivered spontaneously a liveborn male child at 1:33 PM in the afternoon of May 31, 2021. The baby had Apgars of 7 at 1 minute and 8 at 5 minutes. She has done well and has remained afebrile throughout her hospitalization. She is eating and drinking and ambulating. She is breast-feeding. She has AB- blood, we are waiting the baby's blood type to see if she needs RhoGAM. She was group B streptococcus negative. She will be discharged home later today to follow-up with me as needed. She will continue with her vitamins and iron. She has Cytotec to take at home and she has 3 200 mg tablets and she will take 1 every 6 hours over the next 24 hours. She was given Cytotec prior to discharge. Her condition on discharge is stable and improved. Objective Vital signs: Temp Pulse Resp BP Pulse Ox 98.1 F 82 18 117/83 97 05/31/21 06:08 05/31/21 06:08 05/31/21 06:08 05/31/21 06:08 05/31/21 06:08 no acute distress - *Routine HEENT Exam Head: Present: normocephalic Eye: Present: EOMI, PERRL ENT: Present: mucous membranes moist Results Labs on day of discharge: Labs from last 24 hours 05/31/21 05/31/21 05/31/21 05:39 05:39 05:39 WBC RBC Hgb Hct MCV MCH MCHC RDW Plt Count MPV Neut % (Auto) Lymph % (Auto) Cook % (Auto) Eos % (Auto) Baso % (Auto) Neut # (Auto) Lymph # (Auto) Cook # (Auto) Eos # (Auto) Baso # (Auto) Urine Color Urine Appearance Urine pH Ur Specific [place] Urine Protein Urine Glucose (UA) Urine Ketones Urine Blood Urine Nitrate Urine Bilirubin Urine Urobilinogen Ur Leukocyte Esterase Urine RBC Urine WBC Ur Squamous Epith Cells Urine Bacteria Urine Opiates Screen Negative Urine Methadone Screen Negative Ur Barbituates Screen Negative Ur Phencyclidine Scrn Negative Ur Amphetamines Screen Negative U Benzodiazepines Scrn Negative Urine Cocaine Screen Negative U Marijuana (THC) Screen Negative SARS-CoV-2 (PCR) Not detected Influenza A Untype (PCR) Not detected Influenza Type B (PCR) Not detected Blood Type AB Negative Antibody Screen Negative 05/31/21 05/31/21 05:39 05:39 WBC 6.1 RBC 4.89 Hgb 13.6 Hct 40.9 MCV 83.5 MCH 27.7 MCHC 33.2 RDW 14.1 Plt Count 195 MPV 9.1 Neut % (Auto) 58.6 Lymph % (Auto) 32.7 Cook % (Auto) 5.8 Eos % (Auto) 1.3 Baso % (Auto) 1.6 Neut # (Auto) 3.6 Lymph # (Auto) 2.0 Cook # (Auto) 0.4 Eos # (Auto) 0.1 Baso # (Auto) 0.1 Urine Color Yellow Urine Appearance Clear Urine pH 6.0 Ur Specific [place] 1.015 Urine Protein Negative Urine Glucose (UA) Trace Urine Ketones Trace Urine Blood Trace-i Urine Nitrate Negative Urine Bilirubin Negative Urine Urobilinogen 0.2 Ur Leukocyte Esterase Negative Urine RBC 3-5 Urine WBC Occasional Ur Squamous Epith Cells 3-5 Urine Bacteria None Urine Opiates Screen Urine Methadone Screen Ur Barbituates Screen Ur Phencyclidine Scrn Ur Amphetamines Screen U Benzodiazepines Scrn Urine Cocaine Screen U Marijuana (THC) Screen SARS-CoV-2 (PCR) Influenza A Untype (PCR) Influenza Type B (PCR) Blood Type Antibody Screen DS: Diagnosis - Discharge Diagnosis (1) Advanced maternal age (AMA), 40 years or greater Status: Acute (2) Grand multiparity Status: Acute (3) Rh incompatibility in pr
== END 2021-05-31 20:20 | disposition home or self-care (01) | DRG 807 ==
PROVIDERS: Admitting Provider Nurse Practitioner Obstetrics & Gynecology; PCP Nurse Practitioner Family; Visit Provider Nurse Practitioner Obstetrics & Gynecology
DX: O69.81X0 Labor and delivery complicated by cord around neck, without compression, not applicable or unspecified (principal); Z37.0 Single live birth; Z3A.39 39 weeks gestation of pregnancy; Z23 Encounter for immunization; O26.893 Other specified pregnancy related conditions, third trimester
CPT/HCPCS: 59409; 36415; 59025; 80305; 81001; 85025; 85461; 86850; C9803; J2790; U0003; U0005

== ENCOUNTER → 2021-08-28 12:53 | Outpatient (CLI) | payer SELFPAY ==
--- NOTE | 2021-08-28 12:56 | US_ITS ---
FINAL REPORT CLINICAL HISTORY: NONTOXIC GOITER FINDINGS: Sonographic images of the thyroid were obtained. The right lobe of the thyroid measures 2.0 x 4.5 x 2.2 cm. The left lobe of the thyroid measures 0.9 x 4.3 x 1.5 cm. There is a spongiform mass in the right thyroid lobe measuring 3.2 x 2.0 x 2.4 cm consistent with TI-RADS category 1. There is a 1.0 x 0.8 x 0.8 spongiform mass inferior to this consistent with TI-RADS category 1. There is a solid, predominantly isoechoic nodule in the left thyroid lobe measuring 6 x 4 x 3 mm consistent with TI-RADS category 3. IMPRESSION: Bilateral thyroid nodules and masses as detailed above. No follow-up is required. Reviewed, Interpreted and Dictated by Nawaf Black III, MD Transcribed by Helene Shah Authenticated by Nawaf Black III, MD on 08/28/2021 03:28:49 PM [facility]
== END ==
PROVIDERS: PCP Nurse Practitioner Family; Visit Provider Nurse Practitioner Family
DX: E04.9 Nontoxic goiter, unspecified (principal)
CPT/HCPCS: 76536

== ENCOUNTER 2022-10-19 08:08 | Observation (INO) | payer SELFPAY ==
[2022-10-19] VITALS (9 sets, daily range): BP systolic 106–128; BP diastolic 55–74; PULSE 68–96; RESP 18–20; TEMP 36.5–36.9; O2SAT 97–100; BMI 25.9; BMI 25.6
--- NOTE | 2022-10-19 08:12 | HMH.EDGENADL ---
Discharge Plan Disposition Chief Complaint: Weakness Prescriptions Prescriptions: No Action Pre-Ai Multivitamins/Minerals 27-1-300 mg Capsule 1 cap PO DAILY Referrals Follow up/Referrals: Allegra Au [Primary Care Provider] - See instructions Discharge ED Provider: Karlos Perdomo General Adult HPI General Chief complaint: Weakness Stated complaint: Fast heartbeat, weakness 12 weeks Time Seen by Provider: 10/19/22 08:12 History of Present Illness HPI narrative: Patient is a 42-year-old female who is a A2 who is 12 weeks gestational age by LMP presenting today with weakness. She states that this has been going on for the last several days to weeks and is to the point now where she gets dyspneic with basic activities such as walking up stairs. She denies any chest pain or shortness of breath at rest. She denies any fevers or chills or cough. She denies any lower extremity edema PND or orthopnea. She denies any asymmetric leg swelling or hemoptysis or prolonged immobilizations. She has never had any DVT or PTE in the past. She states that she has had a thyroid nodule in the past but this has been evaluated and treated and had a recent thyroid screening test which she claims was normal. She states that similar symptoms presented at another in the past and she was given IV fluids at that time and her symptoms resolved. She denies any nausea vomiting or diarrhea. She has not had any abdominal pain loss of fluid or contractions. Related Data Home Medications Medication Instructions Recorded Confirmed prenat.vits,luz,[id number] 1 tab PO DAILY Supplement 10/19/22 10/19/22 Allergies Allergy/AdvReac Type Severity Reaction Status Date / Time Sulfa (Sulfonamide Allergy Unknown hives Verified 05/22/21 14:27 Antibiotics) [SULFA (SULFONAMIDE ANTIBIOTICS)] [facility] Disclaimer: The information contained in this section may have been updated after the patient was seen, as this information can be updated by other users. Social History Smoking Status: Never smoker alcohol intake: never substance use type: denies use current occupational status: unemployed Travel in the last 8 weeks: None ROS Obtained: Yes All systems reviewed & no additional complaints except as documented Physical Exam General General appearance: alert Respiratory Respiratory exam: Present normal lung sounds bilaterally; Absent respiratory distress Cardiovascular Cardiovascular exam: Present regular rate and other (Good peripheral perfusion); Absent tachycardia, systolic murmur or diastolic murmur Abdominal Exam Abdominal exam: Present soft; Absent tenderness, guarding or rebound Extremities Exam Extremities exam: Present other (No lower extremity edema) Neurological Exam Neurological exam: Present alert Medical Decision Making Danial Inquiry Pt receiving controlled substance: No Vital Signs: 10/19/22 08:37 10/19/22 09:00 10/19/22 09:30 Temperature 97.8 F Temperature Source Oral Pulse Rate 82 68 Pulse Rate [Left Radial] 79 Respiratory Rate 20 20 Blood Pressure 114/64 106/65 L Blood Pressure [Right Arm] 128/74 Blood Pressure Mean 80 78 Blood Pressure Mean [Right Arm] 92 02 Sat by Pulse Oximetry 100 100 100 Oxygen Delivery Method Room Air Room Air 10/19/22 10:00 Temperature Temperature Source Pulse Rate 82 Pulse Rate [Left Radial] Respiratory Rate 20 Blood Pressure 114/71 Blood Pressure [Right Arm] Blood Pressure Mean 85 Blood Pressure Mean [Right Arm] 02 Sat by Pulse Oximetry 100 Oxygen Delivery Method Lab Data Lab Results 10/19/22 08:58: Chlamy pneumoniae PCR Not detected, Adenovirus (PCR) Not detected, B. pertussis DNA (PCR) Not detected, Coronavirus OC43 (PCR) Not detected, Coronavirus HKU1 (PCR) Not detected, Coronavirus 229E (PCR) Not detected, SARS-CoV-2 (PCR) Not detected, Coronavirus NL63 (PCR) Not detected, Human Metapneu
--- NOTE | 2022-10-19 08:35 | XR_ITS ---
PROCEDURE INFORMATION: Exam: XR Chest Exam date and time: 10/19/2022 8:39 AM Age: 42 years old Clinical indication: Dyspnea TECHNIQUE: Imaging protocol: Radiologic exam of the chest. Views: 1 view. COMPARISON: No relevant prior studies available. FINDINGS: Lungs: Unremarkable. No consolidation. Pleural spaces: Unremarkable. No pleural effusion. No pneumothorax. Heart/Mediastinum: Unremarkable. No cardiomegaly. Bones/joints: Unremarkable. IMPRESSION: No acute findings.
--- NOTE | 2022-10-19 08:56 | ECG_ITS ---
APPROVED REPORT Exam: Resting ECG HR:82 bpm ECG Measurements Heart Rate 82 AXES MT 140 P 83 QRSd 93 QRS 93 QT 353 T 63 QTc 392 Conclusion SINUS RHYTHM RIGHT ATRIAL ENLARGEMENT [0.3mV P-WAVE] BORDERLINE RIGHT AXIS DEVIATION [QRS AXIS > 90] ABNORMAL ECG UNCONFIRMED REPORT Electronically signed by : Jerry Valencia MD 10/19/2022 14:30:41
--- NOTE | 2022-10-19 09:00 | PC.NURSE ---
covid swab sent to lab
[2022-10-19 09:04] LABS: Adenovirus,PCR Not Detected (NotDetected); Bordetella Pertussis Not Detected (NotDetected); Chlamydophila Pneumoniae, PCR Not Detected (NotDetected); Coronavirus 19, PCR Not Detected (NotDetected); Coronavirus 229E Not Detected (NotDetected); Coronavirus NL63 Not Detected (NotDetected); Coronavirus OC43 Not Detected (NotDetected); Coronovirus HKU1,PCR Not Detected (NotDetected); Human Metapneumovirus Not Detected (NotDetected); Influenza A, PCR Not Detected (NotDetected); Influenza AH1, 2009 Not Detected (NotDetected); Influenza AH1, PCR Not Detected (NotDetected); Influenza AH3,PCR Not Detected (NotDetected); Influenza B, PCR Not Detected (NotDetected); Mycoplasma Pneumoniae, PCR Not Detected (NotDetected); Parainfluenza 1, PCR Not Detected (NotDetected); Parainfluenza 2, PCR Not Detected (NotDetected); Parainfluenza 3, PCR Not Detected (NotDetected); Parainfluenza 4, PCR Not Detected (NotDetected); Respiratory Syncytial Virus Not Detected (NotDetected); Rhinovirus/Enterovirus Not Detected (NotDetected)
[2022-10-19 09:17] LABS: Basophils % 0.2 % (0.1-2.0); Eosinophils # 0.1 K/mm3 (0.0-0.4); Eosinophils % 1.4 % (0.1-12.0); Hematocrit 42.7 % (37.0-47.0); Hemoglobin 13.5 g/dL (12.2-16.2); Lymphocytes # 1.5 K/mm3 (0.7-4.5); Lymphocytes % 24.4 % (10-50); Mean Corpuscular HGB Conc 31.7 g/dL (31.8-35.4); Mean Corpuscular Hemoglobin 25.6 pg (27.0-31.2); Mean Corpuscular Volume 80.7 fl (81-99); Mean Platelet Volume 7.7 fl (7.4-10.4); Monocytes # 0.3 K/mm3 (0.1-1.0); Monocytes % 4.7 % (1.7-9.3); Neutrophils # 4.3 K/mm3 (1.8-7.8); Neutrophils % 69.2 % (37.0-80.0); Platelet Count 211 K/mm3 (142-424); Red Blood Count 5.29 M/mm3 (4.20-5.40); Red Cell Distribution Width 14.8 % (11.5-17.5); White Blood Count 6.3 K/mm3 (4.8-10.8)
[2022-10-19 09:23] LABS: Alanine Aminotransferase 22 U/L (12-78); Albumin Level 3.7 g/dl (3.5-5.0); Albumin/Globulin Ratio 1.4 (1.1-1.8); Alkaline Phosphatase 36 U/L (38-126); Anion Gap 12.9 mEq/L (5-15); Aspartate Amino Transferase 24 U/L (14-36); Bilirubin,Total 0.2 mg/dl (0.2-1.3); Blood Urea Nitrogen 12 mg/dl (7-17); Calcium 8.6 mg/dl (8.4-10.2); Carbon Dioxide 23 mmol/L (22.0-30.0); Chloride 106 mmol/L (98-107); Creatinine Clearance Estimated 224 mL/min (50-200); Estimated Glomerular Filt Rate 175 ml/min (>60); GFR (African American) 212 ML/MIN (>60); Globulin 2.6 g/dL (1.3-3.2); Glucose 77 mg/dl (74-100); Magnesium 1.9 mg/dl (1.6-2.3); Phosphorous 3.1 mg/dl (2.5-4.5); Potassium 3.9 mmoL/L (3.5-5.1); Sodium 138 mmol/L (136-145); Total Protein,Serum 6.3 g/dl (6.3-8.2)
[2022-10-19 09:27] LABS: D-Dimer 1.19 ug/mL (0.0-0.5)
[2022-10-19 09:30] LABS: Monoscreen (Rapid) Negative (Negative)
[2022-10-19 09:36] LABS: NT Pro Brain Natriuretic Pep. 49.4 pg/mL (0-125)
--- NOTE | 2022-10-19 09:43 | CT_ITS ---
PROCEDURE INFORMATION: Exam: CTA Chest With Contrast Exam date and time: 10/19/2022 10:33 AM Age: 42 years old Clinical indication: Dyspnea; Patient HX: PT is 12-13 weeks -- elevated d-dimer, PT signed consent for scan and shielded abdomen; Additional info: Profound dyspnea, , elevated dimer >1 TECHNIQUE: Imaging protocol: Computed tomographic angiography of the chest with contrast. Exam focused on the arteries. 3D rendering (Not supervised by radiologist): MIP and/or 3D reconstructed images were created by the technologist. Radiation optimization: All CT scans at this facility use at least one of these dose optimization techniques: automated exposure control; mA and/or kV adjustment per patient size (includes targeted exams where dose is matched to clinical indication); or iterative reconstruction. Contrast material: ISOVUE; Contrast volume: 75 ml; Contrast route: INTRAVENOUS (IV); REPORTING DATA: Count of CT and Cardiac NM exams in prior 12 months: This patient has received 0 known CTs and 0 known cardiac nuclear medicine studies in the 12 months prior to the current study. COMPARISON: CR XR CHEST PORTABLE 10/19/2022 8:39 AM FINDINGS: Pulmonary arteries: Negative for acute pulmonary embolism. Aorta: Unremarkable. No aortic aneurysm. No aortic dissection. Thyroid: Heterogeneous nodule in the right thyroid lobe measures 2.5 x 1.5 cm known from previous ultrasound. Lungs: Unremarkable. No consolidation. No masses. Pleural spaces: Unremarkable. No pneumothorax. No pleural effusion. Heart: Unremarkable. No cardiomegaly. No pericardial effusion. Lymph nodes: Unremarkable. No enlarged lymph nodes. Bones/joints: Unremarkable. No acute fracture. Soft tissues: Unremarkable. IMPRESSION: Negative for acute pulmonary embolism.
[2022-10-19 09:44] LABS: Troponin I < 0.01 ng/ml (0.00-0.034)
[2022-10-19 09:55] LABS: Thyroid Stimulating Hormone 0.02 uIU/mL (0.465-4.68)
--- NOTE | 2022-10-19 10:12 | PC.NURSE ---
Dr Foster paged
--- NOTE | 2022-10-19 10:16 | PC.NURSE ---
Dr Perdomo speaking to Dr Foster, cardiology
--- NOTE | 2022-10-19 10:22 | PC.NURSE ---
ER AT BEDSIDE
--- NOTE | 2022-10-19 10:24 | PC.NURSE ---
Dr Perdomo speaking with hospitalist
--- NOTE | 2022-10-19 10:32 | PC.NURSE ---
house aware of admission
--- NOTE | 2022-10-19 10:42 | HMH.ITSTN ---
pt is 13 weeks -- discussed CT with Er Dr. Perdomo and family Dr and signed consent for PE study -- shielded abdomen for scan
--- NOTE | 2022-10-19 10:43 | PC.NURSE ---
report called to nadeen rn
--- NOTE | 2022-10-19 10:46 | PC.NURSE ---
1035 pt assigned to room [id number]
[2022-10-19 10:57] LABS: ABG Base Excess -4.8 mmol/L (-2.4-2.3); ABG Oxygen Saturation 98 % (90-100); ABG PCO2 22.3 mmhg (35.0-45.0); ABG PH 7.53 mmol/L (7.35-7.45); ABG PO2 97.7 mmhg (80-100); ABG TCO2 18.7 mmhg (23-27)
--- NOTE | 2022-10-19 10:57 | PC.NURSE ---
arrived to floor by w/c from ED
[2022-10-19 10:58] LABS: Allen's Test Acceptable
[2022-10-19 10:59] LABS: Oxygen Room Air %; Source Right Radial
--- NOTE | 2022-10-19 11:44 | PC.NURSE ---
FHT's dopplered at bedside at 158bpm
--- NOTE | 2022-10-19 11:56 | PC.NURSE ---
Dr. Rankin notified of consult
[2022-10-19 12:58] LABS: Troponin I < 0.01 ng/ml (0.00-0.034)
--- NOTE | 2022-10-19 13:27 | EXP.GYN.CONS ---
History of Present Illness *Admission Date: 10/19/22 *Reason for visit:: , fatigue, *History of present illness: Patient is a 42-year-old female who is a A2 who is 12 weeks gestational age by LMP presenting today with weakness.? She states that this has been going on for the last several days to weeks and is to the point now where she gets dyspneic with basic activities such as walking up stairs.? She denies any chest pain or shortness of breath at rest.? She denies any fevers or chills or cough.? She denies any lower extremity edema PND or orthopnea.? She denies any asymmetric leg swelling or hemoptysis or prolonged immobilizations.? She has never had any DVT or PTE in the past.? She states that she has had a thyroid nodule in the past but this has been evaluated and treated and had a recent thyroid screening test which she claims was normal.? She states that similar symptoms presented at another in the past and she was given IV fluids at that time and her symptoms resolved.? She denies any nausea vomiting or diarrhea.? She has not had any abdominal pain loss of fluid or contractions.She has had a PE work-up which was essentially negative. She just complains of extreme fatigue With activity. [facility] Disclaimer: The information contained in this section may have been updated after the patient was seen, as this information can be updated by other users. Social History Smoking Status: Never smoker alcohol intake: never substance use type: denies use current occupational status: unemployed Travel in the last 8 weeks: None Review of Systems Review of Systems Review of systems:: pertinent systems reviewed and negative unless documented below Meds Home Medications and Allergies Home Medications Medication Instructions Recorded Confirmed Type prenat.vits,luz,cxj-vorw-ehzgw 1 tab PO DAILY Supplement 10/19/22 10/19/22 History New Prescriptions to Start Prescriptions: Allergies Allergy/AdvReac Type Severity Reaction Status Date / Time Sulfa (Sulfonamide Allergy Unknown hives Verified 05/22/21 14:27 Antibiotics) [SULFA (SULFONAMIDE ANTIBIOTICS)] Exam (Inpt) Vital signs and Labs for Last 24 Hours: Temp Pulse Resp BP Pulse Ox 97.7 F 84 18 116/71 100 10/19/22 11:00 10/19/22 11:00 10/19/22 11:00 10/19/22 11:00 10/19/22 11:00 Laboratory Results - last 24 hr 10/19/22 08:58: Chlamy pneumoniae PCR Not detected, Adenovirus (PCR) Not detected, B. pertussis DNA (PCR) Not detected, Coronavirus OC43 (PCR) Not detected, Coronavirus HKU1 (PCR) Not detected, Coronavirus 229E (PCR) Not detected, SARS-CoV-2 (PCR) Not detected, Coronavirus NL63 (PCR) Not detected, Human Metapneumovir PCR Not detected, Influenza A (H1) PCR Not detected, Influ A (H1N1/09) PCR Not detected, Influenza A (H3) PCR Not detected, Influenza Type A (PCR) Not detected, Influenza Type B (PCR) Not detected, M. pneumoniae (PCR) Not detected, Parainfluenza 1 (PCR) Not detected, Parainfluenza 2 (PCR) Not detected, Parainfluenza 3 (PCR) Not detected, Parainfluenza 4 (PCR) Not detected, RSV (PCR) Not detected, Entero/Rhino (PCR) Not detected 10/19/22 09:02: Monoscreen Negative 10/19/22 09:02: WBC 6.3, RBC 5.29, Hgb 13.5, Hct 42.7, MCV 80.7 L, MCH 25.6 L, MCHC 31.7 L, RDW 14.8, Plt Count 211, MPV 7.7, Neut % (Auto) 69.2, Lymph % (Auto) 24.4, [place] % (Auto) 4.7, Eos % (Auto) 1.4, Baso % (Auto) 0.2, Neut # (Auto) 4.3, Lymph # (Auto) 1.5, [place] # (Auto) 0.3, Eos # (Auto) 0.1, Baso # (Auto) 0.0 10/19/22 09:02: Sodium 138, Potassium 3.9, Chloride 106, Carbon Dioxide 23, Anion Gap 12.9, BUN 12, Creatinine 0.40 L, Estimated Creat Clear 224, Estimated GFR 175, Est GFR ( Amer) 212, Glucose 77, Calcium 8.6, Phosphorus 3.1, Magnesium 1.9, Total Bilirubin 0.2, AST 24, ALT 22, Alkaline Phosphatase 36 L, Troponin I < 0.01, NT-Pro-B Natriuret Pep 49.4, Total Protein 6.3, Albumin 3
--- NOTE | 2022-10-19 14:39 | EXP.HP ---
History of Present Illness *Admission Date: 10/19/22 *History of present illness: Patient is a 42-year-old female who is a A2 who is 12 weeks gestational age by LMP presenting today with severe weakness.? She states that this has been progressive in nature for the past few months, however has gotten significantly worse the past week. Now when she performs basic activities gets severely dyspneic such as walking up stairs. No recent medication changes or viral illnesses. No sick contacts. No syncopal episodes. No family history of cardiac problems, pulmonary problems or cudden cardiac . Had typical morning sickness and nausea with first trimester but nothing abnormal per her report. ? She denies any chest pain or shortness of breath at rest.? She denies any fevers or chills or cough.? She denies any lower extremity edema PND or orthopnea.? She denies any asymmetric leg swelling or hemoptysis or prolonged immobilizations.? She has never had any DVT or PTE in the past.? She states that she has had a thyroid nodule in the past but this has been evaluated and treated and had a recent thyroid screening test which she claims was normal.? She states that similar symptoms presented at another in the past and she was given IV fluids at that time and her symptoms resolved.? She denies any nausea vomiting or diarrhea.? She has not had any abdominal pain loss of fluid or contractions. She has had a PE work-up which was essentially negative. She just complains of extreme fatigue With activity. [facility] Disclaimer: The information contained in this section may have been updated after the patient was seen, as this information can be updated by other users. Social History Smoking Status: Never smoker alcohol intake: never substance use type: denies use current occupational status: unemployed Travel in the last 8 weeks: None Review of Systems Review of Systems Review of systems:: pertinent systems reviewed and negative unless documented below Meds Home Medications and Allergies Home Medications Medication Instructions Recorded Confirmed Type prenat.vits,luz,zos-ccmq-ycprt 1 tab PO DAILY Supplement 10/19/22 10/19/22 History New Prescriptions to Start Prescriptions: Allergies Allergy/AdvReac Type Severity Reaction Status Date / Time Sulfa (Sulfonamide Allergy Unknown hives Verified 05/22/21 14:27 Antibiotics) [SULFA (SULFONAMIDE ANTIBIOTICS)] Exam Data for Last 24 hours Vital signs and Labs for Last 24 Hours: Temp Pulse Resp BP Pulse Ox 97.7 F 84 18 116/71 100 10/19/22 11:00 10/19/22 11:00 10/19/22 11:00 10/19/22 11:00 10/19/22 11:00 Laboratory Results - last 24 hr 10/19/22 08:58: Chlamy pneumoniae PCR Not detected, Adenovirus (PCR) Not detected, B. pertussis DNA (PCR) Not detected, Coronavirus OC43 (PCR) Not detected, Coronavirus HKU1 (PCR) Not detected, Coronavirus 229E (PCR) Not detected, SARS-CoV-2 (PCR) Not detected, Coronavirus NL63 (PCR) Not detected, Human Metapneumovir PCR Not detected, Influenza A (H1) PCR Not detected, Influ A (H1N1/09) PCR Not detected, Influenza A (H3) PCR Not detected, Influenza Type A (PCR) Not detected, Influenza Type B (PCR) Not detected, M. pneumoniae (PCR) Not detected, Parainfluenza 1 (PCR) Not detected, Parainfluenza 2 (PCR) Not detected, Parainfluenza 3 (PCR) Not detected, Parainfluenza 4 (PCR) Not detected, RSV (PCR) Not detected, Entero/Rhino (PCR) Not detected 10/19/22 09:02: Monoscreen Negative 10/19/22 09:02: WBC 6.3, RBC 5.29, Hgb 13.5, Hct 42.7, MCV 80.7 L, MCH 25.6 L, MCHC 31.7 L, RDW 14.8, Plt Count 211, MPV 7.7, Neut % (Auto) 69.2, Lymph % (Auto) 24.4, [place] % (Auto) 4.7, Eos % (Auto) 1.4, Baso % (Auto) 0.2, Neut # (Auto) 4.3, Lymph # (Auto) 1.5, [place] # (Auto) 0.3, Eos # (Auto) 0.1, Baso # (Auto) 0.0 10/19/22 09:02: Sodium 138, Potassium 3.9, Chloride 106, Carbon Dioxide 23, Anion G
[2022-10-19 15:01] LABS: Free T4 (Free Thyroxine) 0.95 ng/dl (0.78-2.19)
--- NOTE | 2022-10-19 16:58 | EXP.DC.SUM ---
General Admission date:: 10/19/22 HPI HPI HPI: Patient is a 42-year-old female who is a A2 who is 12 weeks gestational age by LMP presenting today with severe weakness.? She states that this has been progressive in nature for the past few months, however has gotten significantly worse the past week. Now when she performs basic activities gets severely dyspneic such as walking up stairs. No recent medication changes or viral illnesses. No sick contacts. No syncopal episodes. No family history of cardiac problems, pulmonary problems or cudden cardiac . Had typical morning sickness and nausea with first trimester but nothing abnormal per her report. ? She denies any chest pain or shortness of breath at rest.? She denies any fevers or chills or cough.? She denies any lower extremity edema PND or orthopnea.? She denies any asymmetric leg swelling or hemoptysis or prolonged immobilizations.? She has never had any DVT or PTE in the past.? She states that she has had a thyroid nodule in the past but this has been evaluated and treated and had a recent thyroid screening test which she claims was normal.? She states that similar symptoms presented at another in the past and she was given IV fluids at that time and her symptoms resolved.? She denies any nausea vomiting or diarrhea.? She has not had any abdominal pain loss of fluid or contractions. She has had a PE work-up which was essentially negative. She just complains of extreme fatigue With activity. Hospital Course Hospital Course Hospital Course: 42-year-old female presenting due to progressively worsening exertional dyspnea.? Initial presentation concerning for PE considering symptoms, elevated D-dimer, acute respiratory alkalosis and EKG with right axis deviation and right atrial enlargement.? However CT PE was negative for acute pulmonary embolism.? Chest x-ray also unremarkable.? CMP and CBC unremarkable.? Laboratory evaluation so far only significant for low TSH, T4 within normal range, T3 pending.? At this time differential includes cardiac structural abnormalities or underlying cardiomyopathy however, I suspect this would have presented itself earlier considering she is on her 16th and is unlikely.? [id number] ultrasound with a normal LV ejection fraction, Will order complete formal echo outpatient. CT shows no evidence of pulmonary hypertension with a normal pulmonary artery diameter 26 mm, and no pericardial effusion.? At this time all evaluations have been largely unremarkable, which is reassuring especially with normal vital signs.? On the differential also including some post viral state resulting in fatigue, or potential psychosomatic symptoms (unlikely). OB following patient.? Patient requesting to go home since she feels much better after receiving IV fluids. Discharge is appropriate given negative evaluation and symptomatic improvement Follow-up with primary care Outpatient echocardiography ordered Return to emergency department if symptoms worsen Exam Data for Last 24 hours Vital signs and Labs for Last 24 Hours: Temp Pulse Resp BP Pulse Ox 98.4 F 87 18 117/55 L 97 10/19/22 16:00 10/19/22 16:00 10/19/22 16:00 10/19/22 16:00 10/19/22 16:00 Laboratory Results - last 24 hr 10/19/22 08:58: Chlamy pneumoniae PCR Not detected, Adenovirus (PCR) Not detected, B. pertussis DNA (PCR) Not detected, Coronavirus OC43 (PCR) Not detected, Coronavirus HKU1 (PCR) Not detected, Coronavirus 229E (PCR) Not detected, SARS-CoV-2 (PCR) Not detected, Coronavirus NL63 (PCR) Not detected, Human Metapneumovir PCR Not detected, Influenza A (H1) PCR Not detected, Influ A (H1N1/09) PCR Not detected, Influenza A (H3) PCR Not detected, Influenza Type A (PCR) Not detected, Influenza Type B (PCR) Not detected, M. pneumoniae (PCR) Not detected, Parainfluenza 1 (PCR) Not detected, Parainfluenza 2 (PCR) Not detected, Parainfluenza 3 (PCR) Not detected, Parainfluenza 4 (
--- NOTE | 2022-10-19 17:27 | PC.NURSE ---
verbal order to discharge patient per thanh sifuentes md
--- NOTE | 2022-10-21 13:14 | CARE MANAGER ---
Spoke with family member that states that patient is currently at [facility] in [place] as she is not feeling better. No other needs noted at this time.
[2022-10-21 16:13] LABS: Triiodothyronine (T3) Total 272 ng/dL (71-180)
[2022-10-21 16:13] LABS: EBV Ab VCA, IgM <36.0 U/mL (0.0-35.9); EBV Nuclear Antigen Ab, IgG 97.8 U/mL (0.0-17.9)
== END 2022-10-19 17:22 | disposition home or self-care (01) ==
LOC: ER 08:57 → 2ND 10:49
PROVIDERS: Admitting Provider Student in an Organized Health Care Education/Training Program; Emergency Provider Student in an Organized Health Care Education/Training Program; PCP Nurse Practitioner Family; Visit Provider Student in an Organized Health Care Education/Training Program
DX: O26.811 Pregnancy related exhaustion and fatigue, first trimester (principal); R06.00 Dyspnea, unspecified; E05.90 Thyrotoxicosis, unspecified without thyrotoxic crisis or storm; O99.281 Endocrine, nutritional and metabolic diseases complicating pregnancy, first trimester; Z3A.12 12 weeks gestation of pregnancy; Z20.822 Contact with and (suspected) exposure to COVID-19; R06.09 Other forms of dyspnea
CPT/HCPCS: 36415; 71045; 71275; 80053; 82803; 83735; 83880; 84100; 84439; 84443; 84480; 84484; 85025; 85378; 86318; 86664; 86665; 87581; 87632; 87798; 93005; 99285; C9803; G0378; Q9967; U0003; U0005

== ENCOUNTER → 2023-01-28 16:11 | Outpatient (CLI) | payer SELFPAY | PROVIDERS: PCP Nurse Practitioner Family; Visit Provider Nurse Practitioner Obstetrics & Gynecology | DX: Z34.90 Encounter for supervision of normal pregnancy, unspecified, unspecified trimester (principal) ==

== ENCOUNTER 2023-04-20 05:57 | Inpatient (IN) | payer SELFPAY ==
[2023-04-20 06:41] VITALS: BMI 29.5
[2023-04-20 07:05] LABS: Basophils % 0.3 % (0.1-2.0); Eosinophils % 0.2 % (0.1-12.0); Hematocrit 42.2 % (37.0-47.0); Hemoglobin 14.6 g/dL (12.2-16.2); Lymphocytes # 1.7 K/mm3 (0.7-4.5); Lymphocytes % 28.4 % (10-50); Mean Corpuscular HGB Conc 34.6 g/dL (31.8-35.4); Mean Corpuscular Hemoglobin 28.3 pg (27.0-31.2); Mean Corpuscular Volume 81.8 fl (81-99); Mean Platelet Volume 8.3 fl (7.4-10.4); Monocytes # 0.3 K/mm3 (0.1-1.0); Monocytes % 4.5 % (1.7-9.3); Neutrophils % 66.6 % (37.0-80.0); Platelet Count 193 K/mm3 (142-424); Red Blood Count 5.16 M/mm3 (4.20-5.40); Red Cell Distribution Width 14.3 % (11.5-17.5); White Blood Count 5.9 K/mm3 (4.8-10.8)
--- NOTE | 2023-04-20 07:20 | HMH.PHAINT1 ---
Pharmacy Intervention Comments: MEDICATION RECONCILIATION COMPLETED ON PATIENT USING EXTERNAL FILL HISTORY FROM PHARMACY. -ABBY BOWERS, IRVIND
[2023-04-20 08:14] LABS: Microscopic, Urine URINE MICROSCOPIC (MICROSCOPIC)
[2023-04-20 08:20] LABS: Appearance,Urine CLEAR (Clear); Bilirubin,Urine Negative (Negative); Blood, Urine 1+ (Negative); Color,Urine YELLOW (Yellow); Glucose,Urine (UA) Negative (Negative); Ketones,Urine Negative (Negative); Leukocyte Esterase,Urine TRACE (Negative); Nitrate,Urine Negative (Negative); Protein,Urine Negative (Negative); Specific Gravity, Urine >= 1.030 (1.005-1.030); Urobilinogen,Urine 0.2 EU/dl (0.2)
--- NOTE | 2023-04-20 08:42 | EXP.LABOR.NO ---
Labor Note Subjective: Date: 04/20/23 Time: 08:35 regular contraction Objective: NST:: Reactive Contractions:: every 4-5 minutes Cervical Dilation:: 2-3 Effacement:: 50% Station: -2 Membranes: artificially ruptured Comment:: I ruptured the source clear fluid at Fetus: Monitoring?: Yes monitoring type:: External Assessment: Labor progressing?: Yes Cephalopelvic disproportion?: No Plan: Anesthesia for epidural?: Yes Continue to labor down?: Yes Plan for ?: No Continue to monitor?: Yes Start pushing?: No
--- NOTE | 2023-04-20 08:43 | EXP.HP ---
History of Present Illness *Admission Date: 04/20/23 *Reason for visit:: Term , grand multiparity, AMA *History of present illness: She is a 42-year-old 16 para 13 aborta 2 who is 39 weeks gestational age. She requested induction of labor at 39 weeks so she can get an epidural. She has another sykes healthy [facility] lady. She has a be negative blood. She has had 13 previous vaginal deliveries. [facility] Disclaimer: The information contained in this section may have been updated after the patient was seen, as this information can be updated by other users. Medical History Surgical History No history of previous surgery Family History Diabetes Social History Smoking Status: Never smoker alcohol intake: never substance use type: denies use current occupational status: unemployed Travel in the last 8 weeks: None Review of Systems Review of Systems Review of systems:: pertinent systems reviewed and negative unless documented below Meds Home Medications and Allergies Home Medications Medication Instructions Recorded Confirmed Type methimazole 5 mg tablet 5 mg PO DAILY Thyroid 01/28/23 04/20/23 History sertraline 25 mg tablet 25 mg PO HS Mood 03/25/23 04/20/23 History vit no.95-ferrous 1 tab PO DAILY Supplement 04/20/23 04/20/23 History fumarate 28 mg-folic acid 800 mcg tablet () New Prescriptions to Start Prescriptions: Allergies Allergy/AdvReac Type Severity Reaction Status Date / Time Sulfa (Sulfonamide Allergy Unknown hives Verified 03/25/23 15:28 Antibiotics) [SULFA (SULFONAMIDE ANTIBIOTICS)] Exam Data for Last 24 hours Vital signs and Labs for Last 24 Hours: Laboratory Results - last 24 hr 04/20/23 06:34: WBC 5.9, RBC 5.16, Hgb 14.6, Hct 42.2, MCV 81.8, MCH 28.3, MCHC 34.6, RDW 14.3, Plt Count 193, MPV 8.3, Neut % (Auto) 66.6, Lymph % (Auto) 28.4, [place] % (Auto) 4.5, Eos % (Auto) 0.2, Baso % (Auto) 0.3, Neut # (Auto) 4.0, Lymph # (Auto) 1.7, [place] # (Auto) 0.3, Eos # (Auto) 0.0, Baso # (Auto) 0.0, Crossmatch (AHG) See Detail 04/20/23 08:05: Urine Color Yellow, Urine Appearance Clear, Urine pH 6.0, Ur Specific [place] >= 1.030, Urine Protein Negative, Urine Glucose (UA) Negative, Urine Ketones Negative, Urine Blood 1+, Urine Nitrate Negative, Urine Bilirubin Negative, Urine Urobilinogen 0.2, Ur Leukocyte Esterase Trace I & O for Last 24 hours: Intake & Output 04/17/23 04/18/23 04/19/23 04/20/23 11:59 11:59 11:59 11:59 Weight 194 lb Constitutional Constitutional: no acute distress *Routine HEENT Exam Head: Present normocephalic Eye: Present EOMI and PERRL ENT: Present mucous membranes moist *Routine Neck Exam Neck: Present supple; Absent lymphadenopathy *Routine Respiratory Exam Respiratory: Present CTA bilaterally *Routine Cardiovascular Exam Cardiovascular: Present RRR *Routine Abdominal Exam Abdominal: Present soft and normoactive bowel sounds; Absent tenderness *Routine Rectal Exam Rectal:: deferred *Routine Genitalia Exam Genitalia:: deferred *Routine Extremities Exam Extremities: Absent cyanosis, clubbing or edema *Routine Skin Exam Skin: Present warm; Absent rash *Routine Neurological Exam Neurological: Present alert and oriented X3 Assessment and Plan *Assessment and plan (1) Advanced maternal age (AMA), 40 years or greater: Status: Acute Category: Medical (2) Grand multiparity: Status: Acute Category: Medical Code(s): Z64.1 - Problems related to multiparity (3) Rh incompatibility in , antepartum: Status: Acute Qualifiers: Fetus number: fetus 6 or greater Qualified Code(s): O36.0999 - Maternal care for other rhesus isoimmunizatio
[2023-04-20 08:50] LABS: Bacteria,Urine 1+ /lpf; Mucus,Urine 1+ /lpf
[2023-04-20 08:54] VITALS: BP 137/88; PULSE 82; RESP 18; TEMP 36.8; O2SAT 98; BMI 29.2
[2023-04-20 09:30] LABS: Amphetamine/Metha Screen,Urine Negative ng/ml (<1000); Barbiturates Screen,Urine Negative ng/ml (<200)
[2023-04-20 09:31] LABS: Cannabinoid Screen,Urine Negative ng/ml (<50)
[2023-04-20 09:32] LABS: Cocaine Screen,Urine Negative ng/ml (<300)
[2023-04-20 09:33] LABS: Methadone Screen,Urine Negative ng/ml (<300); Opiate Screen,Urine Negative ng/ml (<300)
[2023-04-20 09:34] LABS: Phencyclidine Screen,Urine Negative ng/ml (<25)
[2023-04-20 09:38] LABS: Benzodiazepines Screen,Urine Negative ng/ml (<200)
--- NOTE | 2023-04-20 10:31 | P.PNANES_ITS ---
[facility] Disclaimer: The information contained in this section may have been updated after the patient was seen, as this information can be updated by other users. Medical History Surgical History No history of previous surgery Family History Other Diabetes Social History Smoking Status: Never smoker alcohol intake: never substance use type: denies use current occupational status: other Travel in the last 8 weeks: None [facility] Anesthesia Checklist Patient Identification Patient Identification: Arm Band and Verbal (Name & ) Structural Data Admitted From: Inpatient Planned Operative Procedure/s: Labor epidural Consent for Planned Operative Procedure(s) Verified: Yes NPO Status Verified Time NPO: 04:30 Chart Verification Results Verified: CBC Additional verifications Patient : Yes Anesthesia Reactions: No Airway Assessment Mallampati Score:: Class II C-Spine Mobility Assessed: Yes TMJ Mobility Assessed: Yes Dentition: Good Dentition Neurological Assessment Level of Consciousness: Awake Hx Seizures: No Numbness or tingling in extremities: No Anesthesia Plan Anesthesia Risk discussed: Yes Anesthesia Plan: Verified ASA Class: II Anesthesia Type: Epidural
--- NOTE | 2023-04-20 11:11 | EXP.LABOR.NO ---
Labor Note Subjective: Date: 04/20/23 Time: 11:11 regular contraction Objective: NST:: Reactive Contractions:: every 2-3 minutes Cervical Dilation:: 4 Effacement:: 75% Station: -2 Membranes: artificially ruptured Fetus: Monitoring?: Yes monitoring type:: External Assessment: Labor progressing?: Yes Cephalopelvic disproportion?: No Plan: Anesthesia for epidural?: Yes Continue to labor down?: Yes Plan for ?: No Continue to monitor?: Yes Start pushing?: No Additional information:: She had an epidural and is doing well with this. She is matthew regularly. Nonstress test is reactive. We will expect a vaginal delivery.
--- NOTE | 2023-04-20 13:37 | EXP.LABOR.NO ---
Labor Note Subjective: Date: 04/20/23 Time: 13:37 regular contraction Objective: NST:: Reactive Contractions:: every 2-3 minutes Cervical Dilation:: 4-5 Effacement:: 75% Station: -2 Membranes: artificially ruptured Fetus: Monitoring?: Yes monitoring type:: External Assessment: Labor progressing?: Yes Cephalopelvic disproportion?: No Plan: Anesthesia for epidural?: Yes Continue to labor down?: Yes Plan for ?: No Continue to monitor?: Yes Start pushing?: No
--- NOTE | 2023-04-20 17:04 | EXP.DN ---
Delivery Note Delivery Date:: 04/20/23 Delivery Time:: 14:59 Anesthesia Type: Epidural Was labor medically induced?: Yes Induction method: per pitocin protocol Gestational age (weeks): 39 delivered prior to 39 weeks?: No Justification for early elective delivery:: Other Infant Gender: Male at 1 minute: 9 at 5 minutes: 10 Delivery Procedure:: She is a 42-year-old 16 now para 14 aborta 2 who was 39 weeks gestational age. She has had trouble in previous pregnancies and wanted to be induced at 39 weeks so she could get an epidural. She also wanted to deliver in hospital. As result of that she was offered induction of labor. She was started on IV oxytocin and had her membranes ruptured. Under labor epidural she progressed to full dilation and delivered spontaneously a liveborn male child at 2:59 PM in the afternoon of April 20, 2023. On delivery the head it was noted that there was a tight nuchal cord. I was able to deliver the body after the head. I was then able to reduce the cord. The baby was vigorous and cried spontaneously. The oropharynx and nasopharynx were bulb suction. We allowed the cord to continue to pulsate for approximately 1 minute. The cord was then doubly clamped and cut and the was placed on the mother's abdomen for further care. The nurses assigned Apgars of 9 at 1 minute and 10 at 5 minutes. We then obtained cord blood. She received IV oxytocin and using gentle traction on the cord and countertraction on the fundus I was able to easily deliver the placenta intact 4 minutes after delivery. He had a normal three-vessel cord. There were no perineal or vaginal lacerations. She has AB- blood. Estimated blood loss was approximately 150 cc. Placental Delivery Description: Spontaneous
--- NOTE | 2023-04-20 18:33 | EXP.DC.SUM ---
General Admission date:: 04/20/23 Discharge date: 04/20/23 HPI HPI HPI: She is a 42-year-old 16 para 13 aborta 2 who is 39 weeks gestational age. She requested induction of labor at 39 weeks so she can get an epidural. She has another sykes healthy [facility] lady. She has a be negative blood. She has had 13 previous vaginal deliveries. Hospital Course Hospital Course Hospital Course: She was started on IV oxytocin had her membranes ruptured. She progressed to full dilation and delivered spontaneously a liveborn male child at 1450 9 PM in the afternoon of April 20, 2023. The baby had Apgars of 9 at 1 minute and 10 at 5 minutes. Blood loss was minimal. She had no vaginal or perineal tears. She has AB- blood and will receive RhoGAM. The baby has Rh+ blood. She She will be discharged home to follow-up with me in approximately 6 weeks time for a Mirena IUD insertion. Her condition on discharge is stable and improved. Exam Data for Last 24 hours Vital signs and Labs for Last 24 Hours: Temp Pulse Resp BP Pulse Ox O2 Del Method 98.2 F 82 18 137/88 98 Room Air 04/20/23 08:54 04/20/23 08:54 04/20/23 08:54 04/20/23 08:54 04/20/23 08:54 04/20/23 08:54 Laboratory Results - last 24 hr 04/20/23 06:34: WBC 5.9, RBC 5.16, Hgb 14.6, Hct 42.2, MCV 81.8, MCH 28.3, MCHC 34.6, RDW 14.3, Plt Count 193, MPV 8.3, Neut % (Auto) 66.6, Lymph % (Auto) 28.4, [place] % (Auto) 4.5, Eos % (Auto) 0.2, Baso % (Auto) 0.3, Neut # (Auto) 4.0, Lymph # (Auto) 1.7, [place] # (Auto) 0.3, Eos # (Auto) 0.0, Baso # (Auto) 0.0, Blood Type AB Negative, Antibody Screen Negative, Crossmatch (AHG) See Detail 04/20/23 08:05: Urine Color Yellow, Urine Appearance Clear, Urine pH 6.0, Ur Specific [place] >= 1.030, Urine Protein Negative, Urine Glucose (UA) Negative, Urine Ketones Negative, Urine Blood 1+, Urine Nitrate Negative, Urine Bilirubin Negative, Urine Urobilinogen 0.2, Ur Leukocyte Esterase Trace, Urine RBC 3-5, Urine WBC 5-10, Ur Squamous Epith Cells 5-10, Urine Bacteria 1+, Urine Mucus 1+, Urine Opiates Screen Negative, Urine Methadone Screen Negative, Ur Barbituates Screen Negative, Ur Phencyclidine Scrn Negative, Ur Amphetamines Screen Negative, U Benzodiazepines Scrn Negative, Urine Cocaine Screen Negative, U Marijuana (THC) Screen Negative I & O for Last 24 hours: Intake & Output 04/18/23 04/19/23 04/20/23 04/21/23 11:59 11:59 11:59 11:59 Weight 192 lb Constitutional Constitutional: no acute distress *Routine HEENT Exam Head: Present normocephalic Eye: Present EOMI and PERRL ENT: Present mucous membranes moist *Routine Neck Exam Neck: Present supple; Absent lymphadenopathy *Routine Respiratory Exam Respiratory: Present CTA bilaterally *Routine Cardiovascular Exam Cardiovascular: Present RRR *Routine Abdominal Exam Abdominal: Present soft and normoactive bowel sounds; Absent tenderness *Routine Extremities Exam Extremities: Absent cyanosis, clubbing or edema *Routine Skin Exam Skin: Present warm; Absent rash *Routine Neurological Exam Neurological: Present alert and oriented X3 Results Data Completed and Pending Labs on day of discharge: Labs from last 24 hours 04/20/23 04/20/23 08:05 06:34 WBC 5.9 RBC 5.16 Hgb 14.6 Hct 42.2 MCV 81.8 MCH 28.3 MCHC 34.6 RDW 14.3 Plt Count 193 MPV 8.3 Neut % (Auto) 66.6 Lymph % (Auto) 28.4 [place] % (Auto) 4.5 Eos % (Auto) 0.2 Baso % (Auto) 0.3 Neut # (Auto) 4.0 Lymph # (Auto) 1.7 [place] # (Auto) 0.3 Eos # (Auto) 0.0 Baso # (Auto) 0.0 Urine Color Yellow Urine Appearance Clear Urine pH 6.0 Ur Specific [place] >= 1.030 Urine Protein Negative Urine Glucose (UA) Negative Urine Ketones Negative Urine Blood 1+ Urine Nitrate Negative Urine Bilirubin Negative Urine Urobilinogen 0.2 Ur Leukocyte Esterase Trace Urine RBC 3-5 Urine WBC 5-10 Ur Squamous Epith Cells 5-10 Urine Bacteria 1+ Urine Mucus 1+
== END 2023-04-20 19:55 | disposition home or self-care (01) | DRG 807 ==
PROVIDERS: Admitting Provider Obstetrics & Gynecology; PCP Nurse Practitioner Obstetrics & Gynecology; Visit Provider Obstetrics & Gynecology
DX: O69.1XX0 Labor and delivery complicated by cord around neck, with compression, not applicable or unspecified (principal); Z37.0 Single live birth; Z3A.39 39 weeks gestation of pregnancy; O99.284 Endocrine, nutritional and metabolic diseases complicating childbirth; E05.90 Thyrotoxicosis, unspecified without thyrotoxic crisis or storm
CPT/HCPCS: 59409; 59025; 80305; 81001; 85025; 85461; 86850; 94761; G0283; J0290; J2790